=== PATIENT | male | born 1965 | race African-American/Black ===

== ENCOUNTER 2020-06-22 17:32 | Outpatient (CLI) | payer MEDICARE, SELFPAY ==
--- NOTE | ~2020-06-22 | XR_ITS ---
EXAMINATION: XR chest 2V EXAM DATE: 06/22/2020 17:48 INDICATION: Cough coughing up phlegm. TECHNIQUE: Frontal and lateral projections of the chest obtained and reviewed. Comparison is made to prior examination from 01/14/2019. FINDINGS: The lungs are clear. There are no pleural effusions. The cardiomediastinal silhouette is within normal limits. There is no pneumothorax suspected. The bones and soft tissues are unremarkab le. IMPRESSION: No acute cardiopulmonary findings. Reviewed, dictated and finalized at location A.
== END 2020-06-22 17:33 | disposition home or self-care (01) ==
LOC: ANHIMG 17:36
PROVIDERS: PCP Internal Medicine; Visit Provider Internal Medicine
DX: R05 Cough (principal)
CPT/HCPCS: 71046

== ENCOUNTER 2020-07-02 08:34 | Outpatient (CLI) | payer MEDICARE, SELFPAY ==
--- NOTE | ~2020-07-02 | XR_ITS ---
EXAMINATION: XR UGIAC w barium swallow DATE: 07/02/2020 09:10 INDICATION: Cough. TECHNIQUE: The patient drank thick barium, gas-producing crystals, and thin barium. Fluoroscopy of th e esophagus, stomach, and proximal small bowel was performed. Fluoroscopy exposure time was 0.6 minut es. The total number of images was 275. Total dose-area product was 2.43 Gy-cm^2. COMPARISON: None. FINDINGS: There is no mass or stricture of the esophagus. Esophageal motility is normal. There is no hiatal hernia. There was no gastroesophageal reflux with provocative maneuvers. The stomach and proxi mal small bowel show normal folding patterns. IMPRESSION: 1. Normal upper gastrointestinal series. Reviewed, dictated and finalized at location A.
== END 2020-07-02 08:35 | disposition home or self-care (01) ==
PROVIDERS: PCP Internal Medicine; Visit Provider Nurse Practitioner
DX: R05 Cough (principal)
CPT/HCPCS: 74246

== ENCOUNTER 2020-10-29 07:52 | Outpatient (CLI) | payer MEDICARE, SELFPAY | END 2020-10-29 07:53 | disposition home or self-care (01) | PROVIDERS: PCP Internal Medicine; Visit Provider Internal Medicine Critical Care Medicine | DX: J30.9 Allergic rhinitis, unspecified (principal) | CPT/HCPCS: 36415; 82785; 86003 ==

== ENCOUNTER 2021-02-03 07:27 | Outpatient (CLI) | payer MEDICARE, SELFPAY ==
--- NOTE | ~2021-02-03 | MR_ITS ---
EXAMINATION: MR knee LT wo con DATE: 02/03/2021 08:55 INDICATION: Bilateral primary osteoarthritis of the left knee TECHNIQUE: Magnetic resonance imaging (MRI) of the left knee was performed without intravenous contra st. Sequences included coronal PD-weighted FSE, coronal PD-weighted FS FSE, sagittal T2-weighted FSE , sagittal PD-weighted FS FSE and axial PD weighted fat saturated FSE. COMPARISON: None. FINDINGS: Medial compartment: Complex tear of the body and posterior horn of the medial meniscus which includes both horizontal and radial components. There is extensive partial thickness cartilage loss with chondral surface regular ity most prominent along the medial third of the medial tibial plateau with there is mild subarticula r edema and along the anterior to central weightbearing medial femoral condyle without underlying deg enerative subchondral changes. Lateral compartment: Lateral meniscus is normal. Articular cartilage is normal. Patellofemoral compartment: There is chondral fissuring involving up to 50% the cartilage thickness at the patellar apical ridge with more shallow chondral fissuring at the medial facet. Deep chondral fissuring with mild underlyin g cortical irregularity and minimal subarticular edema along the caudal half of the trochlear groove and medial trochlea. Ligaments and tendons: Anterior and posterior cruciate ligaments are normal. The medial collateral ligament and fibular anabella ateral ligament complex are normal. The extensor mechanism is normal. The visualized medial and later al hamstring tendons as well as the iliotibial band are normal. Fluid: Small to moderate left knee joint effusion with synovitis at the suprapatellar pouch and along the po sterior margin of Hoffa's fat pad. No loose osteochondral bodies identified. Moderate sized Burdick's c yst with small amount of fluid tracking caudally from the cyst along the superficial margin of the me dial head of the gastrocnemius muscle suggesting some extravasation from the Burdick's cyst. Minimal pr epatellar edema without discrete bursal fluid collection. Osseous/other: Aside from the previous noted mild degenerative subarticular edema in the medial and patellofemoral c ompartments there is normal marrow signal. No fracture or pathologic marrow replacing process. IMPRESSION: 1. Complex medial meniscal tear. 2. Moderate medial compartment osteoarthritis and mild patellofemoral osteoarthritis with regions of moderate and high-grade chondromalacia in both compartments. 3. Moderate-sized left knee joint effusion and moderate-sized Burdick's cyst. Reviewed, dictated and finalized at location A. IMPRESSION: 1. Complex medial meniscal tear. 2. Moderate medial compartment osteoarthritis and mild patellofemoral osteoarth ritis with regions of moderate and high-grade chondromalacia in both compartmen ts. 3. Moderate-sized left knee joint effusion and moderate-sized Burdick's cyst.
[2021-02-03 10:00] LABS: Alanine Aminotransferase 30 U/L (4-50); Albumin Level 4.2 g/dL (3.5-5.1); Alkaline Phosphatase 86 U/L (38-126); Anion Gap 2 mmol/L (8-16); Aspartate Amino Transferase 40 U/L (17-59); Bilirubin,Total 0.5 mg/dL (0.2-1.3); Blood Urea Nitrogen 18 mg/dL (9-20); Calcium 8.8 mg/dL (8.4-10.2); Carbon Dioxide 29 mmol/L (22-30); Chloride 107 mmol/L (98-107); Cholesterol 151 mg/dL (0-200); Estimated Glomerular Filt Rate > 60; Glucose 114 mg/dL (75-110); HDL Direct 46 mg/dL; Potassium 4.1 mmol/L (3.4-5.0); Sodium 138 mmol/L (137-145); Triglycerides 69 mg/dL (<150)
[2021-02-03 10:12] LABS: LDL Cholesterol Direct 81 mg/dL
== END 2021-02-03 07:28 | disposition home or self-care (01) ==
PROVIDERS: PCP Internal Medicine; Visit Provider Orthopaedic Surgery
DX: E66.9 Obesity, unspecified (principal); Z12.5 Encounter for screening for malignant neoplasm of prostate; M17.12 Unilateral primary osteoarthritis, left knee; S83.232A Complex tear of medial meniscus, current injury, left knee, initial encounter; X58.XXXA Exposure to other specified factors, initial encounter; M25.462 Effusion, left knee; M71.22 Synovial cyst of popliteal space [Baker], left knee
CPT/HCPCS: 36415; 73721; 80053; 80061; 84153; G0103

== ENCOUNTER → 2021-03-07 07:25 | Outpatient (CLI) | payer MEDICARE, SELFPAY ==
[2021-03-07 19:57] LABS: SARS-CoV-2 RNA PCR Negative
== END ==
PROVIDERS: PCP Internal Medicine; Visit Provider Orthopaedic Surgery
DX: Z01.812 Encounter for preprocedural laboratory examination (principal); Z20.822 Contact with and (suspected) exposure to COVID-19
CPT/HCPCS: C9803; U0003; U0005

== ENCOUNTER 2021-03-08 03:01 | Day surgery (SDC) | payer MEDICARE, SELFPAY ==
[2021-02-24 14:01] VITALS: BMI 32.1
[2021-03-08] VITALS (11 sets, daily range): BP systolic 96–134; BP diastolic 61–88; PULSE 60–67; RESP 8–16; TEMP 36.6; O2SAT 92–100
--- NOTE | 2021-03-08 08:23 | WPDANESEPPF ---
Anes - Initial Pre Proc Eval Procedure: Operation Date: 03/08/21 10:15 Proposed Procedures p Left Knee Arthroscopic Partial Medial Meniscectomy - Keny Terrell MD Date/Time: 03/08/21 08:23 Surgeon: Keny Terrell MD Pre Op Diagnosis: medial meniscus tear left knee Patient Data Age: 55 Gender: M Height: 1.8 m Weight: 101.5 kg Allergies Allergy/AdvReac Type Severity Reaction Status Date / Time No Known Allergies Allergy Verified 03/08/21 08:07 Home Medications Medication Instructions Recorded Confirmed Type fluticasone propionate 50 2 spray INTRANASAL DAILY #16 g 12/17/20 03/08/21 Rx mcg/actuation nasal spray,suspension meloxicam 15 mg tablet 15 mg PO DAILY #90 tablet 02/09/21 03/08/21 Rx Patient hx anesthesia problems: none Family hx anesthesia problems: none PMFSH Past Medical History Medical History Bilateral primary osteoarthritis of knee Body mass index (bmi) 33.0-33.9, adult (01/21/19) BPH w/o urinary obs/LUTS Carpal tunnel syndrome on both sides Chronic bilateral low back pain with bilateral sciatica Erectile dysfunction Ganglion cyst of joint of finger of right hand History of shingles Lumbago with sciatica, right side Postherpetic neuralgia Rhinitis, chronic Surgical History Surgical History H/O lumbar discectomy (~1999) History of back surgery (~2000) Status post debridement of bone spur Family History Family History Sibling Patient's sister is in good health Family history of diabetes mellitus in first degree relative Diabetes mellitus Father Malignant neoplasm of prostate Family history of diabetes mellitus in first degree relative Diabetes mellitus Mother Family history of diabetes mellitus in first degree relative Diabetes mellitus Social History Social History Years smoked: 5 Smoking status: Former smoker Smoking end date: 11/12/16 Alcohol intake: current Alcohol use details: 7 BEERS/ 2-3 CUPS HARD LIQUOR/MONTH Substance use: never Substance use type: does not use Living arrangements: with family Spiritual care concerns: No Anes - Eval Final PreProcedure Day of Procedure 03/08/21 08:23 Patient weight: obese Heart: regular rate and rhythm Lungs: clear to auscultation and normal air movement Airway: Mallampati scale class II Neurological: alert and oriented Last oral intake: >/= 8 hours ASA classification: II Emergent: no Anesthetic plan: proceed Anesthesia type and monitoring: general LMA and standard monitoring Informed Consent: The patient's anesthetic plan and its attendant risks and benefits were discussed with the patient/family/POA. Questions were solicited and answers provided to the satisfaction of the patient/family/POA.
[2021-03-08] MEDS: ACETAMINOPHEN 500 MG TABLET 1000 MG PO (08:26)
[2021-03-08] MEDS: LACTATED RINGERS 1,000 ML 30 ML IV CONT ×2 (08:34→10:58)
[2021-03-08] MEDS: KETOROLAC 15 MG/ML VIAL (*BKC) IV PUSH (08:35)
--- NOTE | 2021-03-08 10:01 | WPDHPUPDATE1 ---
History and Physical Update Update Date/Time: 03/08/21 10:01 History and Physical has been reviewed, including an updated exam of the patient. There are NO changes in the patient's condition. Risks, benefits, and alternatives have been discussed and questions answered. Patient agrees to proceed with procedure.
[2021-03-08] MEDS: ceFAZolin 2 GM/D5W 50 ML 2 GM/50 ML BAG IVPB (10:05)
[2021-03-08] MEDS: BUPIVACAINE/EPINEPHRINE 0.5% 30 ML VIAL INFILTRATE (10:39)
--- NOTE | 2021-03-08 11:22 | P.OP_ITS ---
Procedure Note - Detailed Date of procedure: 03/08/21 Pre-op diagnosis: medial meniscus tear left knee Medial meniscus tear, left knee. Post-op diagnosis: same Procedure performed: Arthroscopic partial medial meniscectomy. Description of procedure: Complex tear of posterior horn. Lateral compartment and ACL benign. Grade 2/3 chondromalacia medial compartment. Grade 2 patella. Anesthesia: GETA Surgeon: Keny Terrell MD Estimated blood loss (mL): 5 Tourniquet time (min): 15 Complications: None Condition: stable Disposition: PACU Findings: Brief History: The patient complained of knee pain, swelling and mechanical symptoms despite conservative treatment. MRI confirmed the presence of a meniscus tear. Procedure Details: The patient was identified and the surgical site confirmed and signed in the preoperative holding area. Antibiotics were started per protocol. She was brought to the operative room and transferred to the OR table. A general anesthetic was administered. Supine position with the operative lower extremity position in the leg laurent after placement of a well padded tourniquet. The leg support was lowered and the contralateral limb was supported with a soft bolster. The knee was prepped and draped in the usual sterile fashion. A time-out was performed. The portal sites were marked and infiltrated with 0.5% Marcaine 20 mL. The limb was exsanguinated and the tourniquet inflated to 300 mL Hg. Standard inferolateral and inferomedial portals were established. Inflow was obtained with the saline pump. The camera was introduced. Diagnostic inspection of the joint was accomplished. The meniscus was debrided with the arthroscopic shaver and punches until stable. The arthroscopic instruments were removed. The tourniquet released and wounds cl osed with subcutaneous 3-0 Monocryl absorbable suture. Steri strips and a sterile dressing were applied. A light elastic wrap was placed. The patient was extubated and brought to the recovery room in stable condition.
[2021-03-08] MEDS: fentaNYL CITRATE INJ (*CRX) 100 MCG/2 ML VIAL 25 MCG IV PUSH (11:50)
[2021-03-08] MEDS: oxyCODONE HCL (*CRX) 5 MG TAB IR PO (13:03)
== END 2021-03-08 13:52 | disposition home or self-care (01) ==
PROVIDERS: PCP Internal Medicine; Visit Provider Orthopaedic Surgery
PROC: (CPT 29870; principal; 2021-03-08 10:15)
DX: S83.232A Complex tear of medial meniscus, current injury, left knee, initial encounter (principal); M22.42 Chondromalacia patellae, left knee; M17.0 Bilateral primary osteoarthritis of knee; E66.9 Obesity, unspecified; Z68.32 Body mass index [BMI] 32.0-32.9, adult; Z87.891 Personal history of nicotine dependence; X58.XXXA Exposure to other specified factors, initial encounter; Y93.9 Activity, unspecified; Y92.9 Unspecified place or not applicable; Y99.9 Unspecified external cause status
CPT/HCPCS: 29881; A9270; J0690; J1100; J1885; J2250; J2370; J2405; J2704; J3010; J7120

== ENCOUNTER 2021-06-23 09:43 | Outpatient (CLI) | payer MEDICARE, SELFPAY ==
[2021-06-24 01:41] LABS: LDL Cholesterol Direct 88 mg/dL
[2021-06-24 01:47] LABS: Alanine Aminotransferase 29 U/L (4-50); Albumin Level 4.8 g/dL (3.5-5.1); Alkaline Phosphatase 97 U/L (38-126); Anion Gap 13 mmol/L (8-16); Aspartate Amino Transferase 37 U/L (17-59); Bilirubin,Total 0.7 mg/dL (0.2-1.3); Blood Urea Nitrogen 18 mg/dL (9-20); Calcium 9.7 mg/dL (8.4-10.2); Carbon Dioxide 25 mmol/L (22-30); Chloride 106 mmol/L (98-107); Cholesterol 183 mg/dL (0-200); Estimated Glomerular Filt Rate > 60; HDL Direct 48 mg/dL; Potassium 3.3 mmol/L (3.4-5.0); Sodium 144 mmol/L (137-145); Triglycerides 75 mg/dL (<150)
[2021-06-24 02:01] LABS: Prostate Specific Antigen 1.2 ng/mL (< OR = 4.0)
== END 2021-06-23 09:44 | disposition home or self-care (01) ==
PROVIDERS: PCP Internal Medicine; Visit Provider Nurse Practitioner
DX: Z79.899 Other long term (current) drug therapy (principal); Z12.5 Encounter for screening for malignant neoplasm of prostate
CPT/HCPCS: 36415; 80053; 80061; 84153; G0103

== ENCOUNTER → 2021-11-10 02:18 | Outpatient (CLI) | payer MEDICARE, SELFPAY ==
[2021-11-11 14:05] LABS: SARS-CoV-2 RNA PCR Negative
== END ==
PROVIDERS: PCP Internal Medicine; Visit Provider Nurse Practitioner
DX: R68.89 Other general symptoms and signs (principal); Z20.822 Contact with and (suspected) exposure to COVID-19
CPT/HCPCS: C9803; U0003; U0005

== ENCOUNTER 2021-11-28 08:17 | Outpatient (CLI) | payer MEDICARE, SELFPAY ==
--- NOTE | ~2021-11-28 | CT_ITS ---
EXAMINATION: CT sinus wo con DATE: 11/28/2021 08:36 INDICATION: TECHNIQUE: Computed tomography (CT) of the paranasal sinuses was performed without contrast. Iterativ e reconstruction technique was employed. Exam dose: 342.48 mGy-cm total exam DLP. COMPARISON: None FINDINGS: There is leftward deviation of the nasal septum. The nasal turbinates are moderately prominent in size bilaterally. There is intralamellar cell of bot h middle nasal turbinates. There is mild soft tissue thickening of the left maxillary ostium; the ostiomeatal units are otherwis e unremarkable bilaterally. The frontal sinuses are clear. There is minimal mucoperiosteal thickening of left maxillary and bilat eral sphenoid sinuses. There is a solitary opacified left ethmoid air cell. The ethmoid air cells are otherwise unremarkable bilaterally. 11 mm mucus retention cyst or polyp in the inferolateral aspect of right maxillary sinus. The mastoid air cells are normally developed and aerated. IMPRESSION: Leftward deviation of nasal septum Interlamellar cell of both middle nasal turbinates Mild mucosal periosteal thickening of the left maxillary ostium 11 mm right maxillary mucous retention cyst or polyp Minimal mucoperiosteal thickening of the sinuses Reviewed, dictated and finalized at Location [facility]. Reviewed, dictated and finalized at location A. DING OPERATOR
== END 2021-11-28 08:18 | disposition home or self-care (01) ==
PROVIDERS: PCP Internal Medicine; Visit Provider Otolaryngology
DX: J32.9 Chronic sinusitis, unspecified (principal); J34.2 Deviated nasal septum; J34.3 Hypertrophy of nasal turbinates; J34.89 Other specified disorders of nose and nasal sinuses; R09.82 Postnasal drip; R43.8 Other disturbances of smell and taste; R44.8 Other symptoms and signs involving general sensations and perceptions
CPT/HCPCS: 70486

== ENCOUNTER 2021-12-30 00:39 | Day surgery (SDC) | payer MEDICARE, SELFPAY ==
[2021-12-22 10:51] VITALS: BMI 31.9
--- NOTE | 2021-12-22 10:52 | PC.NURSE ---
Report to the Outpatient Waiting Room, entrance under the green pavilion located off [facility], at time 0800___ on date _12/30/21_. OR Time: __999___. - You will be asked a series of questions to screen for COVID 19 for your protection. - A mask is required within the hospital. - No visitors are allowed at this time. Preoperative COVID Testing Requirements: No COVID Test needed if: (proof is required; if not received patient will have Rapid Test prior to entry) - Patient has received COVID Vaccine at least 14 days prior to procedure date or - Patient has positive COVID test result within last 90 days of surgery date. COVID Test needed if above criteria is not met If not COVID vaccinated a COVID test must be conducted within 72 hours of surgery and patient is asked to isolate self from time of testing until procedure. You will go to the [facility] for your COVID testing. The [facility] is located at the corner of [address] from [facility]. You will only be called if COVID results are positive and your surgeon may reschedule your elective surgery date. Patients may have clear liquids (water, carbonated beverages, clear teas, apple juice) until 3 hours prior to surgery with a maximum of 20 ounces. - No food from midnight until time of surgery - Infants may have breast milk until 4 hours before surgery, infant formula 6 hours prior to surgery. - Children will be allowed to drink immediately following surgery. If applicable, please bring a bottle or sippy cup to assist with drinking. Juice, water, soda, and popsicles are readily available. For infants on formula, please bring formula the day of surgery. Pacifiers are allowed. Take the following medications with a SIP of water the morning of surgery: ___NONE Medications to discontinue per physician NONE Date to take last dose Please no make-up, nail citizen of [place], hairspray, perfume, deodorant, or body powder the day of surgery. No jewelry (including any body piercings) or valuables the day of surgery, leave them at home. Please take a shower or bath the night before, or the morning of, surgery with an antibacterial soap. Wear comfortable, loose fitting clothing. Children are encouraged to wear pajamas. - Jewelry must be removed prior to entering the operating room. Rings and piercings that are not removed may be cut off. - The hospital will not accept responsibility for valuables. - Please leave all valuables, including medications, at home the day of surgery. If you are going home after surgery, a licensed furniture delivery driver must drive you home. - NO public transportation without another adult. - We recommend that an adult stay with you for 24 hours following discharge. - We also recommend that you do not drive, make important decision, drink alcoholic beverages, or take any drugs that were not prescribed by your health care provider for at least 24 hours after your discharge time. For Pediatric surgeries, we recommend two adults accompany the child home (only one inside the building at this time). Follow any additional instructions given to you from your surgeon. Telephone instructions given to __PATIENT and asked if any additional questions and then verbalized understanding. Patient advised to call surgeon office or pre surgery nurse liaison [phone] if any additional questions.
--- NOTE | 2021-12-29 17:48 | PM.IMHP ---
H&P: HPI History of Present Illness Date/Time: 12/29/21 17:48 Chief Complaint: Facial pain facial pressure chronic sinusitis septal deviation turbinate hypertrophy nasal obstruction Narrative: patient presents for planned surgical procedure no changes in symptoms no change in medical history Review of Systems Constitutional: Constitutional: Denies fatigue, Denies fever(s) and Denies lethargy Eyes: Eyes: Denies blurry vision and Denies change in vision ENT: Reports as per HPI Cardiovascular: Cardiovascular: Denies chest pain Respiratory: Respiratory: Denies cough Endocrine: Endocrine: Denies fatigue Hematologic/Lymphatic: Hematologic/Lymphatic: Denies easy bleeding, Denies easy bruising and Denies lymphadenopathy Allergic/Immunologic: Allergic/Immunologic: Denies seasonal rhinorrhea [facility] Past Medical History Medical History Bilateral primary osteoarthritis of knee Body mass index (bmi) 33.0-33.9, adult (01/21/19) BPH w/o urinary obs/LUTS Carpal tunnel syndrome on both sides Chronic bilateral low back pain with bilateral sciatica Erectile dysfunction Ganglion cyst of joint of finger of right hand History of shingles Lumbago with sciatica, right side Postherpetic neuralgia Rhinitis, chronic Surgical History Surgical History H/O lumbar discectomy (~1999) History of back surgery (~2000) Status post debridement of bone spur Family History Family History Sibling Patient's sister is in good health Family history of diabetes mellitus in first degree relative Diabetes mellitus Father Malignant neoplasm of prostate Family history of diabetes mellitus in first degree relative Diabetes mellitus Mother Family history of diabetes mellitus in first degree relative Diabetes mellitus Social History Social History Years smoked: 5 Smoking status: Former smoker Smoking end date: 11/12/16 Additional smoking assessment comments: SMOKES WITH DRINKING, 1 PACK IN 2 MONTHS Alcohol intake: current Drinks per week: 6 Alcohol use details: 7 BEERS/ 2-3 CUPS HARD LIQUOR/MONTH Substance use: never Substance use type: does not use Living arrangements: alone Spiritual care concerns: No Meds Home Medications and Allergies Home Medications Medication Instructions Recorded Confirmed Type fluticasone propionate 50 2 spray INTRANASAL BID #16 g 11/17/21 12/22/21 Rx mcg/actuation nasal spray,suspension Allergies Allergy/AdvReac Type Severity Reaction Status Date / Time No Known Allergies Allergy Verified 11/17/21 10:26 Exam Const: General: cooperative, healthy appearing, comfortable, well developed and alert HENMT: Head: normal to inspection, normocephalic and atraumatic Ears: hearing grossly normal bilaterally, external ears normal, TM's normal bilaterally and EAC's normal General nose exam: Normal external nose present, Normal nares present and Other nasal findings present ( septal deviation turbinate hy) Face and sinus: normal facial exam Mouth: Yes Normal oral and palatal mucosa present, Yes lip normal, Yes tongue normal, Yes oropharynx normal and Yes moist mucous membranes Teeth and gingiva: dentition normal and gingiva normal Throat: posterior oropharynx normal, tonsils normal and uvula midline Eyes: General: appearance normal, both eyes and all related structures Periorbital: periorbital findings normal Eyelids: eyelids normal Conjunctivae: conjunctivae normal Sclera: sclerae normal Neck: Neck: normal visual inspection, full ROM and no lymphadenopathy Thyroid: thyroid normal Lymphatic: no lymphadenopathy noted Resp: Effort & Inspection: normal respiratory effort and able to speak in complete sentences Cardio: Jugular venous distensio
[2021-12-30] VITALS (7 sets, daily range): BP systolic 114–147; BP diastolic 69–84; PULSE 64–87; RESP 12–18; TEMP 36.1–36.4; O2SAT 93–100
--- NOTE | 2021-12-30 07:12 | WPDHPUPDATE1 ---
History and Physical Update Update Date/Time: 12/30/21 07:12 History and Physical has been reviewed, including an updated exam of the patient. There are NO changes in the patient's condition. Risks, benefits, and alternatives have been discussed and questions answered. Patient agrees to proceed with procedure.
[2021-12-30] MEDS: LACTATED RINGERS 1,000 ML 30 ML IV CONT ×2 (10:57→15:52)
[2021-12-30] MEDS: ACETAMINOPHEN 500 MG TABLET 1000 MG PO (11:03)
--- NOTE | 2021-12-30 11:44 | WPDANESEPPF ---
Anes - Initial Pre Proc Eval Procedure: Operation Date: 12/30/21 12:30 Proposed Procedures p Bilateral Inferior Turbinectomy with Outfracture, Bilateral Maxillary Antrostomy, Total Ethmoidectomy, Resection Bilateral Jennifer Bullosa, - Minh Maurer MD s Endoscopic Septoplasty - Minh Maurer MD Date/Time: 12/30/21 11:44 Surgeon: Minh Maurer MD Pre Op Diagnosis: chronic sinusitis Patient Data Age: 56 Gender: M Height: 1.8 m Weight: 102 kg Last Vital Signs Temp 36.1 C L 12/30/21 10:44 Pulse 64 12/30/21 10:44 Resp 18 12/30/21 10:44 BP 147/74 H 12/30/21 10:44 Pulse Ox 98 12/30/21 10:44 Allergies Allergy/AdvReac Type Severity Reaction Status Date / Time No Known Allergies Allergy Verified 12/30/21 10:50 Home Medications Medication Instructions Recorded Confirmed Type fluticasone propionate 50 2 spray INTRANASAL BID #16 g 11/17/21 12/30/21 Rx mcg/actuation nasal spray,suspension Patient hx anesthesia problems: none Family hx anesthesia problems: none Results Review: All pre-operative results and documents have been reviewed as part of the pre-operative evaluation. [facility] Past Medical History Medical History Bilateral primary osteoarthritis of knee Body mass index (bmi) 33.0-33.9, adult (01/21/19) BPH w/o urinary obs/LUTS Carpal tunnel syndrome on both sides Chronic bilateral low back pain with bilateral sciatica Erectile dysfunction Ganglion cyst of joint of finger of right hand History of shingles Lumbago with sciatica, right side Postherpetic neuralgia Rhinitis, chronic Surgical History Surgical History H/O lumbar discectomy (~1999) History of back surgery (~2000) Status post debridement of bone spur Family History Family History Sibling Patient's sister is in good health Family history of diabetes mellitus in first degree relative Diabetes mellitus Father Malignant neoplasm of prostate Family history of diabetes mellitus in first degree relative Diabetes mellitus Mother Family history of diabetes mellitus in first degree relative Diabetes mellitus Social History Social History Years smoked: 5 Smoking status: Former smoker Smoking end date: 11/12/16 Additional smoking assessment comments: SMOKES WITH DRINKING, 1 PACK IN 2 MONTHS Alcohol intake: current Drinks per week: 6 Alcohol use details: 7 BEERS/ 2-3 CUPS HARD LIQUOR/MONTH Substance use: never Substance use type: does not use Living arrangements: alone Spiritual care concerns: No Anes - Eval Final PreProcedure Day of Procedure 12/30/21 11:44 Patient weight: obese Heart: regular rate and rhythm Lungs: clear to auscultation Airway: Mallampati scale class II Neurological: alert and oriented Last oral intake: >/= 8 hours ASA classification: II Emergent: no Anesthetic plan: proceed Anesthesia type and monitoring: general ETT and standard monitoring Results Review: All pre-operative results and documents have been reviewed as part of the pre-operative evaluation. Informed Consent: The patient's anesthetic plan and its attendant risks and benefits were discussed with the patient/family/POA. Questions were solicited and answers provided to the satisfaction of the patient/family/POA.
--- NOTE | 2021-12-30 12:53 | SUR.PREOP ---
UPDATED PATIENT ON TIME DELAY APPROX 1 HOUR
[2021-12-30] MEDS: ceFAZolin 2 GM/D5W 50 ML 2 GM/50 ML BAG IVPB (13:37)
[2021-12-30] MEDS: OXYMETAZOLINE HCL 0.05% NAS 15 ML BTL (*BKC) 1 SPRAY NASAL (13:52)
[2021-12-30] MEDS: MUPIROCIN 2% OINT 22 GM TUBE 1 APPLIC EACH NARE (15:17)
[2021-12-30] MEDS: oxyCODONE HCL (*CRX) 5 MG TAB IR PO (17:25)
--- NOTE | 2021-12-30 17:56 | W.PM.PROC2 ---
Procedure Note - Detailed Date of Procedure 12/30/21 Pre-op Diagnosis chronic sinusitis, septal deviation, turbinate hypertrophy, nasal obstruction, nasal congestion Post-op Diagnosis same Procedure Performed Endoscopic assisted septoplasty image guided bilateral maxillary antrostomies image guided bilateral total ethmoidectomies bilateral inferior turbinate submucosal resection with outfracture bilateral resection of hardy bullosa Surgeon Minh Maurer MD Anesthesia general Indications See above Findings Turbinate hypertrophy septal deviation corrected postop severely hypertrophied osteotomy bone and all the involved sinuses unable to take all the way up to the skull base fear fracturing skull base difficult to opening with Kerrison. All the aforementioned sinuses were opened adequately the. Description of Procedure Patient identified consent verified preop. Patient brought operating room. Time-out performed. General anesthesia induced endotracheal tube secured to left side. Afrin-soaked pledgets placed for 5 minutes then removed patient prepped and draped for for mentioned procedure image guidance initiated 2nd time-out performed. 0 degree endoscope utilized total of 12 13 cc injected in the bilateral nasal septum an anterior inferior turbinates Christie incision made left nasal septum left mucoperichondrial flap elevated with 7 Bots[place]an suction osteotome utilized to cross septum right side elevated. Deviated nasal septum removed combination of [place] Burr forceps, Carl forceps, and osteotome. Brenden incision closed with 3 interrupted 5 0 fast gut sutures. Small perforations bilaterally none opposing. Turbinates reduced submucosally with a microdebrider with 2 mm blade, then outfractured bilaterally with the Cochran elevator. Sinus procedures were performed bilaterally maxillary antrostomies performed with microdebrider double ball tip probe straight through cut backbiter very osteitic bone maxillary antrostomies completed to completion in normal fashion. The total ethmoidectomies which were also performed bilaterally were difficult the procedure was largely performed with Kerrison and microdebrider only to remove edematous mucosa the bone was too thick to micro debride. The bone was so thick I fear taking it all the way to the skull base however all of the ethmoid air cells were opened. No a pack was placed bilaterally in the middle meati I hemostasis was excellent Jimenez splints were then placed and sutured anteriorly using a 3-0 mattressed nylon suture. Total blood loss 50 cc. Care the patient was turbinate Anesthesiology. I performed all dictated portions of the procedure. Estimated Blood Loss -50.0 Drains No Packing Yes Pathology none sent Complications No immediate complications Condition stable Disposition PACU
== END 2021-12-30 17:55 | disposition home or self-care (01) ==
PROVIDERS: PCP Internal Medicine; Visit Provider Otolaryngology
PROC: (CPT 30520; principal; 2021-12-30 12:30)
PROC: (CPT 30520; 2021-12-30 12:30)
DX: J32.9 Chronic sinusitis, unspecified (principal); J34.2 Deviated nasal septum; J34.3 Hypertrophy of nasal turbinates; J34.89 Other specified disorders of nose and nasal sinuses; R09.82 Postnasal drip; R44.8 Other symptoms and signs involving general sensations and perceptions; J31.0 Chronic rhinitis; Z87.891 Personal history of nicotine dependence; N40.0 Benign prostatic hyperplasia without lower urinary tract symptoms; M54.41 Lumbago with sciatica, right side; B02.29 Other postherpetic nervous system involvement; E66.9 Obesity, unspecified; Z68.31 Body mass index [BMI] 31.0-31.9, adult
CPT/HCPCS: 30520; 30140; 31256; 61782; 31255; 31240; A9270; J0330; J0690; J1100; J1170; J2250; J2405; J2704; J3010; J7120

== ENCOUNTER 2022-02-20 16:33 | Outpatient (CLI) | payer MEDICARE, SELFPAY ==
--- NOTE | ~2022-02-20 | XR_ITS ---
EXAMINATION: XR lumbar spine 2-3V DATE: 02/20/2022 17:05 INDICATION: Low back pain TECHNIQUE: Anteroposterior and lateral views of the lumbar spine, and cone-down lateral view of the l umbosacral junction were obtained. COMPARISON: 09/04/2016 FINDINGS: Again noted is a disc spacer device at L4-5. The vertebral body heights and alignment are n ormal. There is mild loss of intervertebral disc space height at L3-4. There is no fracture. Small de generative osteophytes project from the anterior endplates of multiple vertebral bodies. There is mil d to moderate osteoarthritis of the hips. Phleboliths are noted in the pelvis. IMPRESSION: 1. Mild lumbar spondylosis without acute findings or significant interval change. Reviewed, dictated and finalized at location A. IMPRESSION: 1. Mild lumbar spondylosis without acute findings or significant interval parvez tamayo
[2022-02-20 17:55] LABS: Alanine Aminotransferase 27 U/L (4-50); Albumin Level 4.7 g/dL (3.5-5.1); Alkaline Phosphatase 117 U/L (38-126); Anion Gap 7 mmol/L (8-16); Aspartate Amino Transferase 35 U/L (17-59); Bilirubin,Total 0.6 mg/dL (0.2-1.3); Blood Urea Nitrogen 18 mg/dL (9-20); Calcium 8.9 mg/dL (8.4-10.2); Carbon Dioxide 27 mmol/L (22-30); Chloride 107 mmol/L (98-107); Cholesterol 169 mg/dL (0-200); Estimated Glomerular Filt Rate > 60; Glucose 91 mg/dL (65-110); HDL Direct 46 mg/dL; Sodium 141 mmol/L (137-145); Triglycerides 86 mg/dL (<150)
[2022-02-20 18:08] LABS: LDL Cholesterol Direct 88 mg/dL
[2022-02-20 18:29] LABS: Prostate Specific Antigen 1.1 ng/mL (< OR = 4.0)
== END 2022-02-20 16:34 | disposition home or self-care (01) ==
PROVIDERS: PCP Internal Medicine; Visit Provider Nurse Practitioner
DX: Z13.6 Encounter for screening for cardiovascular disorders (principal); Z13.220 Encounter for screening for lipoid disorders; Z12.5 Encounter for screening for malignant neoplasm of prostate; M47.896 Other spondylosis, lumbar region
CPT/HCPCS: 36415; 72100; 80053; 80061; 84153; G0103

== ENCOUNTER 2023-01-15 06:47 | Outpatient (CLI) | payer MEDICARE, SELFPAY ==
--- NOTE | ~2023-01-15 | MR_ITS ---
EXAMINATION: MR lumbar spine wo con DATE: 01/15/2023 07:24 INDICATION: Chronic low back pain. TECHNIQUE: Magnetic resonance imaging (MRI) of the lumbar spine was performed without intravenous con trast. Sequences included sagittal T2-weighted FSE, sagittal T2-weighted FS FSE, sagittal T1-weighted FSE, and axial T2-weighted FSE. COMPARISON: Lumbar spine radiographs 02/20/2022 FINDINGS: There is 4 degrees dextrocurvature of thoracolumbar spine. There is 3 mm anterolisthesis of L5 on S1. Vertebral body heights are normal. There is mildly decreased disc height at L2-L3 and L3-L 4. There are changes of anterior fusion procedure at L4-L5 with interbody device. Epidural lipomatosi s is noted. The distal spinal cord signal intensity is normal. The conus medullaris is at L1. The fol lowing disc levels are specifically discussed: L1-L2: The disc does not extend beyond the endplate margin. There is mild bilateral facet joint osteo arthritis. There is no neural foraminal stenosis. There is no central canal stenosis. L2-L3: The disc is bulging. There is moderate bilateral facet joint osteoarthritis. There is moderate bilateral neural foraminal stenosis. There is mild central canal stenosis. L3-L4: The disc is bulging and has an annular fissure. There is severe bilateral facet joint osteoart hritis. There is moderate bilateral neural foraminal stenosis. There is moderate central canal stenos is. L4-L5: There is mild right facet joint hypertrophy. There is mild right neural foraminal stenosis. Th ere is no central canal stenosis. L5-S1: The disc does not extend beyond the endplate margin. There is severe bilateral facet joint ost eoarthritis. There is moderate bilateral neural foraminal stenosis. There is no central canal stenosi s. IMPRESSION: 1. Moderate lumbar spondylosis. 2. Anterior fusion procedure at L4-L5. Reviewed, dictated and finalized at location A. OMER MARKETING MANAGER
== END 2023-01-15 06:48 | disposition home or self-care (01) ==
PROVIDERS: PCP Internal Medicine; Visit Provider Nurse Practitioner Family
DX: M47.896 Other spondylosis, lumbar region (principal); Z98.1 Arthrodesis status
CPT/HCPCS: 72148

== ENCOUNTER 2023-03-15 12:59 | Outpatient (CLI) | payer MEDICARE, SELFPAY ==
[2023-03-15 13:48] LABS: Alanine Aminotransferase 35 U/L (6-50); Albumin Level 4.5 g/dL (3.5-5.1); Alkaline Phosphatase 118 U/L (38-126); Anion Gap 6 mmol/L (8-16); Aspartate Amino Transferase 33 U/L (17-59); Bilirubin,Total 0.6 mg/dL (0.2-1.3); Blood Urea Nitrogen 14 mg/dL (9-20); Calcium 8.6 mg/dL (8.4-10.2); Carbon Dioxide 27 mmol/L (22-30); Chloride 106 mmol/L (98-107); Estimated Glomerular Filt Rate > 60; Glucose 133 mg/dL (65-110); Potassium 3.7 mmol/L (3.4-5.0); Sodium 139 mmol/L (137-145)
[2023-03-15 14:18] LABS: Prostate Specific Antigen 1.3 ng/mL (< OR = 4.0)
== END 2023-03-15 13:00 | disposition home or self-care (01) ==
LOC: ANHLAB 13:08
PROVIDERS: PCP Family Medicine; Visit Provider Nurse Practitioner Family
DX: Z00.00 Encounter for general adult medical examination without abnormal findings (principal); Z12.5 Encounter for screening for malignant neoplasm of prostate
CPT/HCPCS: 36415; 80053; 84153; G0103

== ENCOUNTER 2023-04-23 07:37 | Outpatient (CLI) | payer MEDICARE, SELFPAY ==
[2023-04-23 08:32] LABS: Basophils Absolute Auto 0.1 K/mm3 (0.0-0.1); Basophils Percent Auto 0.9 % (0.2-1.2); Eosinophils Absolute Auto 0.2 K/mm3 (0-0.3); Eosinophils Percent Auto 3.2 % (0-4.4); Hematocrit 40.9 % (42.0-52.0); Hemoglobin 13.2 g/dL (14.0-18.0); Immature Granulocyte Absolute 0.05 K/mm3 (0.00-0.031); Immature Granulocyte Percent A 0.9 % (0-0.5); Lymphocytes Absolute Auto 1.82 K/mm3 (0.9-3.2); Lymphocytes Percent Auto 34.3 % (18.3-44.2); Mean Corpuscular HGB Conc 32.3 g/dl (32-36); Mean Corpuscular Hemoglobin 29.7 pg (26-34); Mean Corpuscular Volume 92.1 fl (80-100); Mean Platelet Volume 9.8 fl (7.4-10.4); Monocytes Absolute Auto 0.5 K/mm3 (0.1-0.6); Monocytes Percent Auto 9.4 % (2.6-8.5); Neutrophils Absolute Auto 2.7 K/mm3 (1.3-6.7); Neutrophils Percent Auto 51.3 % (45.5-73.1); Platelet Count Result 239 k/mm3 (150-375); Red Blood Count 4.44 M/mm3 (4.6-6.20); Red Cell Distribution Width 13.5 % (11.5-14.5); White Blood Count 5.3 K/mm3 (4.5-10.0)
[2023-04-23 10:28] LABS: Hemoglobin A1C 6.2 % (<5.7)
== END 2023-04-23 07:38 | disposition home or self-care (01) ==
LOC: ANHLAB 07:38
PROVIDERS: PCP Family Medicine; Visit Provider Family Medicine
DX: N52.9 Male erectile dysfunction, unspecified (principal); J32.9 Chronic sinusitis, unspecified; G89.29 Other chronic pain; M17.12 Unilateral primary osteoarthritis, left knee; R73.09 Other abnormal glucose; S83.242A Other tear of medial meniscus, current injury, left knee, initial encounter; X58.XXXA Exposure to other specified factors, initial encounter; M54.50 Low back pain, unspecified
CPT/HCPCS: 36415; 83036; 85025

== ENCOUNTER 2023-05-25 17:34 | Emergency (ER) | payer MEDICARE, SELFPAY ==
--- NOTE | 2023-05-25 17:42 | ED.EXTPRO ---
HPI - Extremity Problem General Chief complaint: Extremity Injury, Lower Stated complaint: Right Foot Toe Pain Time Seen by Provider: 05/25/23 17:42 Source: patient Mode of arrival: ambulatory Limitations: no limitations History of Present Illness HPI Narrative: Tahir is a 58-year-old male patient presenting to the clinic today with complaints of right toe pain times 2-3 weeks. He reports he has a sore to the top of his right great toe and his 2nd toe sits on top of his right great toe. No known injury. States the pain is shooting up his right leg Related Data Home Medications Medication Instructions Recorded Confirmed No Home Medications 05/25/23 05/25/23 Allergies Allergy/AdvReac Type Severity Reaction Status Date / Time No Known Allergies Allergy Verified 05/25/23 17:35 Review of Systems Review of Systems: Pertinent positives per HPI. Patient denies any fever, chills, rash, headache, visual changes, dizziness, cough, runny nose, sore throat, shortness of breath, chest pain, palpitations, nausea, vomiting, diarrhea, constipation, abdominal pain, or any urinary issues. [facility] Past Medical History Medical History Bilateral primary osteoarthritis of knee Body mass index (bmi) 33.0-33.9, adult (01/21/19) BPH w/o urinary obs/LUTS Carpal tunnel syndrome on both sides Chronic bilateral low back pain with bilateral sciatica Erectile dysfunction Ganglion cyst of joint of finger of right hand History of shingles Lumbago with sciatica, right side Postherpetic neuralgia Rhinitis, chronic Surgical History Surgical History H/O lumbar discectomy (~1999) History of back surgery (~2000) Status post debridement of bone spur Family History Family History Sibling Patient's sister is in good health Family history of diabetes mellitus in first degree relative Diabetes mellitus Father Malignant neoplasm of prostate Family history of diabetes mellitus in first degree relative Diabetes mellitus Mother Family history of diabetes mellitus in first degree relative Diabetes mellitus Social History Social History Years smoked: 5 Smoking status: Former smoker Tobacco type: cigarettes Smoking end date: 11/12/16 Additional smoking assessment comments: SMOKES WITH DRINKING, 1 PACK IN 2 MONTHS Alcohol intake: current Alcohol use details: occasionally Substance use: never Substance use type: does not use Lack of Transportation: No Lack of Food: Never True Current Housing: I Have Housing Concerned About Future Housing: No Difficulty Paying Gas/Electric Bills: YES Difficulty Paying for Meds: YES Currently Unemployed: Decline to Answer Education: Trade/Vocational Certificate Difficulty w/ Childcare or Family Care: No Living arrangements: alone Spiritual care concerns: No Comments At the time of my signature, I reviewed and agree with the nursing past medical, surgical, social, and family history. There is no relevant family history pertinent to the patient complaint. Exam Narrative: General: Well-developed, well nourished, in no apparent distress Head: Normocephalic, atraumatic. Cardio: Regular rate and rhythm, s1 and s2 normal, no murmur appreciated. Resp: Clear to auscultation bilaterally, no rhonchi, rales, wheezing or rubs. Musculoskeletal: Right medial bunion deformity of the right foot, 2nd toe over lays on the right great toe with tender callus to the top of the right great toe, tender to palpation, grossly normal range of motion, muscle strength strong and equal, peripheral pulse strong, no edema, no cyanosis, normal gait and station, no purulent drainage, redness, or streaking Course Course Emergency Course:
[2023-05-25 17:44] VITALS: BP 107/70; PULSE 70; RESP 16; TEMP 36.3; O2SAT 98
== END 2023-05-25 18:14 | disposition home or self-care (01) ==
PROVIDERS: Emergency Provider Nurse Practitioner Family; PCP Family Medicine
DX: L84 Corns and callosities (principal); M21.611 Bunion of right foot; M17.0 Bilateral primary osteoarthritis of knee; N40.0 Benign prostatic hyperplasia without lower urinary tract symptoms
CPT/HCPCS: 99211; G0463

== ENCOUNTER 2023-11-26 10:16 | Outpatient (CLI) | payer MEDICARE, SELFPAY ==
--- NOTE | ~2023-11-26 | CT_ITS ---
Non-contrast Head CT History: Headache Technique: Axial non-contrast imaging of the brain was performed. Dose reduction technique was used on this scan by utilizing automated exposure control and iterative reconstruction technique. The dose -length product (DLP) was 681.00 mGy-cm. Findings: There is no evidence of intracranial hemorrhage, mass lesion, or acute infarct. Brain par enchyma appears normal. The ventricles and subarachnoid spaces are normal in size. The calvarium ap pears normal. The visualized paranasal sinuses and mastoid air cells are clear. Impression: No significant abnormality seen. Reviewed, dictated and finalized at location . USTER Impression: No significant abnormality seen.
[2023-11-26 11:30] LABS: Basophils Percent Auto 0.9 % (0.2-1.2); Eosinophils Absolute Auto 0.2 K/mm3 (0-0.3); Eosinophils Percent Auto 3.7 % (0-4.4); Hematocrit 45.5 % (42.0-52.0); Hemoglobin 14.3 g/dL (14.0-18.0); Immature Granulocyte Absolute 0.01 K/mm3 (0.00-0.031); Immature Granulocyte Percent A 0.2 % (0-0.5); Lymphocytes Absolute Auto 1.62 K/mm3 (0.9-3.2); Lymphocytes Percent Auto 37.9 % (18.3-44.2); Mean Corpuscular HGB Conc 31.4 g/dl (32-36); Mean Corpuscular Hemoglobin 29.9 pg (26-34); Mean Corpuscular Volume 95.2 fl (80-100); Mean Platelet Volume 10.3 fl (7.4-10.4); Monocytes Absolute Auto 0.5 K/mm3 (0.1-0.6); Monocytes Percent Auto 12.4 % (2.6-8.5); Neutrophils Absolute Auto 1.9 K/mm3 (1.3-6.7); Neutrophils Percent Auto 44.9 % (45.5-73.1); Platelet Count Result 203 k/mm3 (150-375); Red Blood Count 4.78 M/mm3 (4.6-6.20); Red Cell Distribution Width 13.1 % (11.5-14.5); White Blood Count 4.3 K/mm3 (4.5-10.0)
[2023-11-26 11:41] LABS: Alanine Aminotransferase 31 U/L (6-50); Albumin Level 4.7 g/dL (3.5-5.1); Alkaline Phosphatase 89 U/L (38-126); Anion Gap 7 mmol/L (8-16); Aspartate Amino Transferase 35 U/L (17-59); Bilirubin,Total 0.7 mg/dL (0.2-1.3); Blood Urea Nitrogen 22 mg/dL (9-20); Calcium 9.3 mg/dL (8.4-10.2); Carbon Dioxide 28 mmol/L (22-30); Chloride 105 mmol/L (98-107); Cholesterol 188 mg/dL (0-200); Estimated Glomerular Filt Rate > 60; Glucose 100 mg/dL (65-110); HDL Direct 54 mg/dL; Potassium 4.5 mmol/L (3.4-5.0); Sodium 140 mmol/L (137-145); Triglycerides 101 mg/dL (<150)
[2023-11-26 11:50] LABS: Hemoglobin A1C 6.5 % (<5.7)
[2023-11-26 11:52] LABS: LDL Cholesterol Direct 94 mg/dL
== END 2023-11-26 10:17 | disposition home or self-care (01) ==
PROVIDERS: PCP Family Medicine; Visit Provider Nurse Practitioner Family
DX: R51.9 Headache, unspecified (principal); R00.1 Bradycardia, unspecified; R42 Dizziness and giddiness; Z79.899 Other long term (current) drug therapy
CPT/HCPCS: 36415; 70450; 80053; 80061; 83036; 85025

== ENCOUNTER 2023-12-18 14:31 | Outpatient (CLI) | payer MEDICARE, SELFPAY ==
--- NOTE | 2024-01-15 16:01 | WPDHOLTEREM ---
Holter/Event Monitor Holter/Event Monitor Date of procedure: 01/04/24 Holter/Event Procedure: 48 Hr Holter Monitor Indications: Bradycardia Conclusion: 1. 48 hour holter monitor on 01/04/24. 2. Underlying rhythm is sinus rhythm. HR range 36-130 bpm; average HR 71 bpm. HR at 36 bpm was at 04:36. 3. There are 18 premature supraventricular complexes and 5 supraventricular couplets. No supraventricular tachycardia. 4. No premature ventricular complexes. No ventricular tachycardia. 5. Left bundle branch block. No significant pauses greater than 2 seconds. 6. No symptoms available for correlation.
== END 2023-12-18 14:32 | disposition home or self-care (01) ==
LOC: ANHCARD 14:34
PROVIDERS: PCP Family Medicine; Visit Provider Nurse Practitioner Family
DX: R00.1 Bradycardia, unspecified (principal); R42 Dizziness and giddiness
CPT/HCPCS: 93225; 93226

== ENCOUNTER 2024-01-23 14:30 | Outpatient (RCR) | payer MEDICARE, SELFPAY | END 2024-04-01 23:59 | disposition home or self-care (01) | LOC: ANHDMC 14:30 | PROVIDERS: PCP Nurse Practitioner Family; Visit Provider Nurse Practitioner Family | DX: E11.9 Type 2 diabetes mellitus without complications (principal); Z71.89 Other specified counseling | CPT/HCPCS: G0108; G0109 ==

== ENCOUNTER 2024-02-18 07:58 | Outpatient (CLI) | payer MEDICARE, SELFPAY ==
[2024-02-18 09:25] LABS: Iron 96 ug/dL (49-181)
[2024-02-18 09:35] LABS: Percent Iron Saturation 31 % (20-50)
[2024-02-18 11:16] LABS: Vitamin D 25 Hydroxy < 12.8 ng/mL
[2024-02-22 12:26] LABS: Testosterone Total 414 ng/dL (250-1100)
== END 2024-02-18 07:59 | disposition home or self-care (01) ==
LOC: ANHLAB 08:01
PROVIDERS: PCP Nurse Practitioner Family; Visit Provider Nurse Practitioner Family
DX: D64.9 Anemia, unspecified (principal); R00.1 Bradycardia, unspecified; N52.9 Male erectile dysfunction, unspecified; G47.00 Insomnia, unspecified; E55.9 Vitamin D deficiency, unspecified; R53.83 Other fatigue
CPT/HCPCS: 36415; 82306; 82607; 82728; 82746; 83540; 83550; 84403; 84443

== ENCOUNTER 2024-07-15 15:41 | Outpatient (CLI) | payer MEDICARE, SELFPAY ==
--- NOTE | ~2024-07-15 | XR_ITS ---
EXAMINATION: XR knee LT min 4V DATE: 07/15/2024 16:06 INDICATION: Bilateral primary osteoarthritis of knee. TECHNIQUE: 4 views of left knee including standing views were obtained. COMPARISON: Left knee radiographs 10/31/21 FINDINGS: There is varus angulation at the knee. No fracture. There is severe osteoarthritis of media l compartment and mild osteoarthritis of lateral and patellofemoral compartments. No knee joint effus ion. IMPRESSION: 1. Severe left knee osteoarthritis. Reviewed, dictated and finalized at location A.
--- NOTE | ~2024-07-15 | XR_ITS ---
EXAMINATION: XR knee RT min 4V DATE: 07/15/2024 16:06 INDICATION: Bilateral primary osteoarthritis of knee. TECHNIQUE: 4 views of right knee including standing views were obtained. COMPARISON: Right knee radiographs 12/08/2019 FINDINGS: There is varus angulation at the knee. No fracture. There is moderate osteoarthritis of med ial compartment and mild osteoarthritis of lateral and patellofemoral compartments. No knee joint eff usion. IMPRESSION: 1. Moderate right knee osteoarthritis. Reviewed, dictated and finalized at location A.
[2024-07-15 16:26] LABS: Basophils Absolute Auto 0.1 K/mm3 (0.0-0.1); Basophils Percent Auto 1.4 % (0.2-1.2); Eosinophils Absolute Auto 0.2 K/mm3 (0-0.3); Eosinophils Percent Auto 4.1 % (0-4.4); Hematocrit 41.5 % (42.0-52.0); Immature Granulocyte Absolute 0.01 K/mm3 (0.00-0.031); Immature Granulocyte Percent A 0.2 % (0-0.5); Lymphocytes Absolute Auto 1.98 K/mm3 (0.9-3.2); Lymphocytes Percent Auto 38.4 % (18.3-44.2); Mean Corpuscular HGB Conc 33.7 g/dl (32-36); Mean Corpuscular Hemoglobin 30.6 pg (26-34); Mean Corpuscular Volume 90.8 fl (80-100); Monocytes Absolute Auto 0.5 K/mm3 (0.1-0.6); Monocytes Percent Auto 9.5 % (2.6-8.5); Neutrophils Absolute Auto 2.4 K/mm3 (1.3-6.7); Neutrophils Percent Auto 46.4 % (45.5-73.1); Platelet Count Result 200 k/mm3 (150-375); Red Blood Count 4.57 M/mm3 (4.6-6.20); Red Cell Distribution Width 12.9 % (11.5-14.5); White Blood Count 5.2 K/mm3 (4.5-10.0)
[2024-07-15 16:47] LABS: Alanine Aminotransferase 25 U/L (6-50); Albumin Level 4.5 g/dL (3.5-5.1); Alkaline Phosphatase 88 U/L (38-126); Anion Gap 7 mmol/L (4-12); Aspartate Amino Transferase 37 U/L (17-59); Bilirubin,Total 0.8 mg/dL (0.2-1.3); Blood Urea Nitrogen 21 mg/dL (9-20); Carbon Dioxide 27 mmol/L (22-30); Chloride 103 mmol/L (98-107); Estimated Glomerular Filt Rate > 60; Glucose 91 mg/dL (65-110); Potassium 3.7 mmol/L (3.4-5.0); Sodium 137 mmol/L (137-145)
[2024-07-15 17:13] LABS: Creatinine Urine 157.4 mg/dL
[2024-07-15 17:17] LABS: Hemoglobin A1C 6.4 % (<5.7)
[2024-07-15 17:24] LABS: MALB Creatinine Ratio < 3.8 mg/g (0-30); Microalbumin Urine Random < 6.0 mg/L (0-16.7)
== END 2024-07-15 15:42 | disposition home or self-care (01) ==
LOC: ANHIMG 15:46
PROVIDERS: PCP Nurse Practitioner Family; Visit Provider Orthopaedic Surgery
DX: M17.0 Bilateral primary osteoarthritis of knee (principal); E11.9 Type 2 diabetes mellitus without complications; N52.9 Male erectile dysfunction, unspecified; Z79.899 Other long term (current) drug therapy
CPT/HCPCS: 36415; 73564; 80053; 82043; 83036; 85025

== ENCOUNTER 2024-07-25 13:39 | Outpatient (CLI) | payer MEDICARE, SELFPAY ==
--- NOTE | 2024-07-25 13:55 | ECG_ITS ---
Test Date: 2024-07-25 14:11:30 Measurements Intervals Blain Rate: 68 P: 52 CO: 194 QRS: -58 QRSD: 169 T: 20 QT: 445 QTc: 474 Interpretive Statements SINUS RHYTHM WITH MARKED SINUS ARRHYTHMIA RIGHT BUNDLE BRANCH BLOCK LEFT ANTERIOR FASCICULAR BLOCK VOLTAGE CRITERIA FOR LVH ABNORMAL ECG No previous ECG available for comparison Electronically Signed On 07-25-2024 14:14:48 CDT by Ravi Quintanilla D.O.
== END 2024-07-25 13:40 | disposition home or self-care (01) ==
PROVIDERS: PCP Nurse Practitioner Family; Visit Provider Orthopaedic Surgery
DX: R00.1 Bradycardia, unspecified (principal); I45.10 Unspecified right bundle-branch block; I44.4 Left anterior fascicular block
CPT/HCPCS: 93005

== ENCOUNTER 2024-09-26 09:03 | Outpatient (CLI) | payer MEDICARE, SELFPAY ==
--- NOTE | 2024-09-26 09:13 | EST_ITS ---
Patient Info Name: Tahir Luis Age: 59 years : 1965 Gender: Male Ht: 71 in Wt: 220 lbs BSA: 2.26 m2 HR: 71 bpm BP: 121 / 77 mmHg Heart Rhythm: Sinus Rhythm Exam Date: 09/26/2024 9:28 AM Exam Location: Echo Lab Patient Status: Outpatient Admit Date: 09/26/2024 Staff Ordering Physician: Ravi Quintanilla DO Attending Provider: Ravi Quintanilla DO Exercise Technologist: Sia Mario RDCS Exercise Physician: Ravi Quintanilla DO Exam Type: CA stress test treadmill Study Info A treadmill exercise stress test was performed. Summary 1. 1. Negative Prakash exercise stress test for ischemic ST changes by ECG criteria. 2. 2. Reduced functional capacity, achieving 8 METs of workload. 3. 3. Appropriate HR response to exercise. 4. 4. Appropriate HR recovery at 1 minute post exercise. 5. 5. No imaging with stress testing. 6. 6. Patient informed of the above results. Protocol: Prakash Stress ECG Details Stage: REST Duration (min): 1 min : 38 sec Speed (mph): 0.0 Grade (%): 0 HR (bpm): 44 SBP (mmHg): 121 DBP (mmHg): 77 METS: --- Stage: REST Duration (min): 5 min : 12 sec Speed (mph): 0.0 Grade (%): 0 HR (bpm): 59 SBP (mmHg): 121 DBP (mmHg): 77 METS: --- Stage: STAGE 1 Duration (min): 1 min : 0 sec Speed (mph): 1.7 Grade (%): 10 HR (bpm): 95 SBP (mmHg): 121 DBP (mmHg): 77 METS: --- Stage: STAGE 1 Duration (min): 2 min : 0 sec Speed (mph): 1.7 Grade (%): 10 HR (bpm): 103 SBP (mmHg): 121 DBP (mmHg): 77 METS: --- Stage: STAGE 1 Duration (min): 3 min : 0 sec Speed (mph): 1.7 Grade (%): 10 HR (bpm): 109 SBP (mmHg): 149 DBP (mmHg): 80 METS: --- Stage: STAGE 2 Duration (min): 1 min : 0 sec Speed (mph): 2.5 Grade (%): 12 HR (bpm): 116 SBP (mmHg): 149 DBP (mmHg): 80 METS: --- Stage: STAGE 2 Duration (min): 2 min : 0 sec Speed (mph): 2.5 Grade (%): 12 HR (bpm): 122 SBP (mmHg): 151 DBP (mmHg): 63 METS: --- Stage: STAGE 2 Duration (min): 3 min : 0 sec Speed (mph): 2.5 Grade (%): 12 HR (bpm): 130 SBP (mmHg): 151 DBP (mmHg): 63 METS: --- Stage: STAGE 3 Duration (min): 0 min : 51 sec Speed (mph): 3.4 Grade (%): 14 HR (bpm): 139 SBP (mmHg): 191 DBP (mmHg): 86 METS: --- Stage: RECOVERY Duration (min): 0 min : 8 sec Speed (mph): 1.5 Grade (%): 0 HR (bpm): 138 SBP (mmHg): 191 DBP (mmHg): 86 METS: --- Stage: RECOVERY Duration (min): 1 min : 8 sec Speed (mph): 0.0 Grade (%): 0 HR (bpm): 106 SBP (mmHg): 191 DBP (mmHg): 86 METS: --- Stage: RECOVERY Duration (min): 2 min : 8 sec Speed (mph): 0.0 Grade (%): 0 HR (bpm): 84 SBP (mmHg): 191 DBP (mmHg): 86 METS: --- Stage: RECOVERY Duration (min): 3 min : 8 sec Speed (mph): 0.0 Grade (%): 0 HR (bpm): 82 SBP (mmHg): 131 DBP (mmHg): 80 METS: --- Stage: RECOVERY Duration (min): 3 min : 32 sec Speed (mph): 0.0 Grade (%): 0 HR (bpm): 77 SBP (mmHg): 131 DBP (mmHg): 80 METS: --- Rest HR: 59 bpm Peak HR: 139 bpm Rest Sys BP: 121 mmHg Peak Sys BP: 191 mmHg Max Pred HR: 161 bpm % Max Pred HR: 86 % Target HR: 137 bpm Max RPP: 26,549 bpm*mmHg Gar Score: -11 Termination Reason: Reached target heart rate or workload Cardiac Symptoms: Shortness of breath Max ST Seg Deviation: 3.50 mm Total Time: 6 min : 51 sec Rest Zhu BP: 77 mmHg Peak Zhu BP: 86 mmHg Angina Score: None Total METS: 8.6 Resting ECG Sinus bradycardia, RBBB, LAFB. Stress ECG No ST changes. Arrhythmias None. Report Signatures
== END 2024-09-26 09:04 | disposition home or self-care (01) ==
LOC: ANHCARD 09:03
PROVIDERS: PCP Nurse Practitioner Family; Visit Provider Internal Medicine Cardiovascular Disease
DX: I45.2 Bifascicular block (principal)
CPT/HCPCS: 93017

== ENCOUNTER 2025-01-21 09:51 | Outpatient (CLI) | payer MEDICARE, SELFPAY ==
[2025-01-21 10:45] LABS: Hemoglobin A1C 6.4 % (<5.7)
--- OUTSIDE RECORDS SUMMARY | 2025-01-21 10:46 | XMS_ITS | Encounter Summary ---
Author Organization [facility] Address [address] [place] [id number] Care Team Providers Care Cavalry Scout Name Role Phone Shawna Rees MD Primary Care Provider Unavail le Encounter Details Date Type Department Care Team (Latest Contact Info) Description 09/17/2018 Abstract [facility] Medical Group Andrei Marvin MD Social History Tobacco Use Types Packs/Day Years Used Date Smoking Tobacco: Never Assessed Sex and Gender Information Value Date Recorded Sex Assigned at Not on file Legal Sex Male 7:54 PM CDT Gender Identity Not on file Sexual Orientation Not on file documented as of this encounter Plan of Treatment Not on file documented as of this encounter Visit Diagnoses Not on filedocumented in this encounter Care Teams Cavalry Scout Relationship Specialty Start Date End Date Shawna Rees MD PCP - General 07/23/13 documented as of this encounter
--- OUTSIDE RECORDS SUMMARY | 2025-01-21 10:46 | XMS_ITS | Clinical Summary ---
Author Organization [facility] Address [address] [place] [id number] Care Team Providers Care Bottom Cementer Name Role Phone Shawna Rees MD Primary Care Provider Unavailab le Social History Tobacco Use Types Packs/Day Years Used Date Smoking Tobacco: Never Assessed Sex and Gender Information Value Date Recorded Sex Assigned at Not on file Legal Sex Male 7:54 PM CDT Gender Identity Not on file Sexual Orientation Not on file Last Filed Vital Signs Vital Sign Reading Time Taken Comments Blood Pressure 113/71 06/06/2013 7:58 AM CDT Pulse 60 06/06/2013 7:58 AM CDT Temperature - - Respiratory Rate - - Oxygen Saturation - - Inhaled Oxygen Concentration - - Weight 98.9 kg (218 lb) 11/08/2012 12:47 PM TABLE COVER FOLDER Height 180.3 cm (5' 11 ) 08/14/2012 10:09 AM CDT Body Mass Index 30.4 08/14/2012 10:09 AM CDT Plan of Treatment Health Maintenance Due Date Last Done Comments Colorectal Cancer Screening Colonoscopy (10 Years) 1965 Annual Physical 1968 Hepatitis C 1983 DTaP, Tdap and Td Vaccines ( 1 - Tdap) 1984 Zoster Vaccines (1 of 2) 2015 COVID-19 Vaccine ( - 2023-2 5 season) 2024 Influenza Adult (#1) 2024 Meningococcal B Vaccine Aged Out No l onger eligible based on patient's age to complete this topic Meningococcal Vaccine Aged Out No edy kevin eligible based on patient's age to complete this topic Pneumococcal Vaccine: Pediat rics (0 to 5 Years) and At-Risk Patients (6 to 64 Years) Aged Out No longer eligible b ased on patient's age to complete this topic RSV Immunizations Under 20 Months Aged Out No longer eligible based on patient's age to complete this topic Care Teams Bottom Cementer Relationship Specialty Start Date End Date Shawna Rees MD PCP - General 07/23/13
[2025-01-21 10:51] LABS: Alanine Aminotransferase 27 U/L (6-50); Albumin Level 4.3 g/dL (3.5-5.1); Alkaline Phosphatase 106 U/L (38-126); Anion Gap 7 mmol/L (4-12); Aspartate Amino Transferase 29 U/L (17-59); Bilirubin,Total 0.5 mg/dL (0.2-1.3); Blood Urea Nitrogen 18 mg/dL (9-20); Calcium 8.9 mg/dL (8.4-10.2); Carbon Dioxide 25 mmol/L (22-30); Chloride 109 mmol/L (98-107); Estimated Glomerular Filt Rate > 60; Glucose 150 mg/dL (65-110); Potassium 3.9 mmol/L (3.4-5.0); Sodium 141 mmol/L (137-145)
--- NOTE | 2025-01-21 11:00 | NEURO_ITS ---
Impression: # Complains of numbness of left hand. Non-diabetic. ? # Severe left Carpal Tunnel Syndrome. ? # No ulnar neuropathy. ? # Abnormal needle/EMG exam. Nerve Conduction Studies Anti Sensory Summary Table ?Stim Site NR Peak (ms) P-T Amp (?V) Site1 Site2 Delta-P (ms) Dist (cm) Edilberto (m/s) Left Median Anti Sensory (2-3nd Digit)??? NO RESPONSE Wrist NR Wrist 2-3nd Digit 14.0 Wrist NR Wrist 2-3nd Digit 14.0 Left Radial Anti Sensory (Base 1st Digit) Wrist ? 2.5 23.6 Wrist Base 1st Digit 2.5 0.0 Left Ulnar Anti Sensory (5th Digit) Wrist ? 2.7 15.2 Wrist 5th Digit 2.7 14.0 52 Motor Summary Table ?Stim Site NR Onset (ms) O-P Amp (mV) Site1 Site2 Delta-0 (ms) Dist (cm) Edilberto (m/s) Left Median Motor (Abd Poll Brev)??? NO RESPONSE Wrist NR Elbow Wrist 26.0 Elbow NR Left Ulnar Motor (Abd Dig Minimi) Wrist ? 3.0 3.9 A Elbow Wrist 6.5 32.0 49 A Elbow ? 9.5 3.0 B Elbow Wrist 4.0 26.0 65 B Elbow ? 7.0 3.4 F Wave Studies ?NR F-Lat (ms) L-R F-Lat (ms) Left Median (Mrkrs) (Abd Poll Brev)??? NO RESPONSE NR Left Ulnar (Mrkrs) (Abd Dig Min) ? 31.49 EMG ?Side Muscle Nerve Root Ins Act Fibs Amp Dur Recrt Comment Left 1stDorInt Ulnar C8-T1 Nml Nml Decr >12ms +1 Left Ext Indicis Radial (Post Int) C7-8 Nml Nml Nml Nml Nml Left Ext Digitorum Radial (Post Int) C7-8 Nml Nml Nml Nml Nml Left BrachioRad Radial C5-6 Nml Nml Nml Nml Nml Left PronatorTeres Median C6-7 Nml Nml Nml Nml Nml Left Abd Poll Brev Median C8-T1 Incr 2+ Decr >12ms +3 Left ABD Dig Min Ulnar C8-T1 Nml Nml Decr >12ms +1 Left FlexPolLong Median (Ant Int) C7-8 Nml Nml Nml Nml Nml Left Abd Poll Long Radial (Post Int) C7-8 Nml Nml Nml Nml Nml ? MTDD
[2025-01-21 11:22] LABS: Prostate Specific Antigen 1.3 ng/mL (< OR = 4.0)
== END 2025-01-21 09:52 | disposition home or self-care (01) ==
PROVIDERS: PCP Nurse Practitioner Family; Visit Provider Nurse Practitioner Family
DX: R20.2 Paresthesia of skin (principal); Z79.899 Other long term (current) drug therapy; N52.9 Male erectile dysfunction, unspecified; Z12.5 Encounter for screening for malignant neoplasm of prostate
CPT/HCPCS: 36415; 80053; 83036; 84153; 95886; 95909; G0103

== ENCOUNTER 2025-10-13 08:36 | Outpatient (CLI) | payer MEDICARE, SELFPAY ==
--- OUTSIDE RECORDS SUMMARY | 2025-10-13 08:45 | XMS_ITS | Encounter Summary ---
Author Organization [facility] Address [address] [place] [address] Care Team Providers Care Cloud Solutions Architect Name Role Phone Shawna Rees MD Primary Care Provider Unavail le Encounter Details Date Type Department Care Team (Latest Contact Info) Description 09/17/2018 Abstract [facility] Medical Group Andrei Marvin MD Social History [...] on filedocumented in this encounter Care Teams Cloud Solutions Architect Relationship Specialty Start Date End Date Shawna Rees MD PCP - General 07/23/13 documented as of this encounter
--- OUTSIDE RECORDS SUMMARY | 2025-10-13 08:45 | XMS_ITS | Clinical Summary ---
Author Organization [facility] Address [address] [place] [id number] Care Team Providers Care Anchor Tacker Name Role Phone Shawna Rees MD Primary [...] 98.9 kg (218 lb) 11/08/2012 12:47 PM PURSE MAKER Height 180.3 cm (5' 11) 08/14/2012 10:09 AM CDT Body Mass Index 30.4 08/14/2012 10:09 AM CDT Plan of Treatment Health Maintenance Due Date Last Done Comments Colorectal Cancer Screening Colonoscopy (10 Years) 1965 Annual Physical 1968 Hepatitis C 1983 DTaP, Tdap and Td Vaccines ( 1 - Tdap) 1984 Pneumococcal Vaccine: 50+ Ye ars (1 of 1 - PCV) 2015 Zoster Vaccines (1 of 2) 2015 COVID-19 Vaccine ( - 2024-2 6 season) 2025 Influenza Adult (#1) 2025 RSV Immunization or 60+ Years (1 - 1-dose 75+ series) 2040 Hepatitis A Vaccines Aged Out No long er eligible based on patient's age to complete this topic Meningococcal B Vaccine Aged Out No l onger eligible based on patient's age to complete this topic Meningococcal Vaccine Aged Out No edy kevin eligible based on patient's age to complete this topic RSV Immunizations Under 20 Months Aged Out No longer eligible based on patient's age to complete this topic Care Teams Anchor Tacker Relationship Specialty Start Date End Date Shawna Rees MD PCP - General 07/23/13
[2025-10-13 09:15] LABS: Hematocrit 42.7 % (42.0-52.0); Hemoglobin 14.3 g/dL (14.0-18.0); Immature Granulocyte Percent A 0.6 % (0-0.5); Lymphocytes Absolute Auto 1.81 K/mm3 (0.9-3.2); Mean Corpuscular HGB Conc 33.5 g/dl (32-36); Mean Corpuscular Hemoglobin 31.2 pg (26-34); Mean Corpuscular Volume 93.0 fl (80-100); Nucleated Red Blood Cells Absolute Auto 0.000 K/mm3 (0.0-0.012); Nucleated Red Blood Cells Perc 0.0 % (0.0-0.2); Platelet Count Result 224 k/mm3 (150-375); Red Blood Count 4.59 M/mm3 (4.6-6.20); White Blood Count 6.7 K/mm3 (4.5-10.0)
[2025-10-13 09:38] LABS: Hemoglobin A1C 6.3 % (<5.7)
[2025-10-13 09:45] LABS: MALB Creatinine Ratio < 2.5 mg/g (0-30)
== END 2025-10-13 08:37 | disposition home or self-care (01) ==
LOC: ANHLAB 08:37
PROVIDERS: PCP Nurse Practitioner Family; Visit Provider Nurse Practitioner Family
DX: E11.9 Type 2 diabetes mellitus without complications (principal); Z00.00 Encounter for general adult medical examination without abnormal findings
CPT/HCPCS: 36415; 82043; 83036; 85025